=== PATIENT | male | born 1995 | race Caucasian/White ===

== ENCOUNTER 2018-10-15 12:06 | Emergency (ER) | payer BC ==
[2018-10-15] MEDS ORDERED: LAMOT150PT PO (12:18)
[2018-10-15] MEDS ORDERED: FLUORESCEIN SOD 1 MG 1 EA STRP ONE (12:23)
[2018-10-15] MEDS ORDERED: PROPARACAINE 0.5% OP 15ML BTL ONE (12:23)
[2018-10-15 13:07] VITALS: BP 111/71
[2018-10-15] MEDS ORDERED: IBUPROFEN 600 MG TAB PO ONE (13:10)
[2018-10-15] MEDS ORDERED: ACETAMINOPHEN 325 MG TAB PO ONE (13:10)
--- NOTE | 2018-10-15 13:10 | ER Report ---
History and Physical Time Seen By MD: 12:10 Hx. of Stated Complaint: right eye pain HPI/ROS CHIEF COMPLAINT: Right eye pain and visual change HISTORY OF PRESENT ILLNESS: [22-year-old male awoke her well, noted on pain approximately 45 minutes before going to work, rubs his right, noted increased pain and floaters. He states that due to this pain, he felt lightheaded, ultimately leading to a syncopal event during which he struck his forehead on the counter leading to a brief episode of syncope. Patient states that he was able to get himself up, although continued to have lightheadedness, headache, ringing in his right ear, nausea and vomiting 2. His primary concern is his right arm pain and visual change. He has no recent change in activity. Pain is moderate and constant. No fever, chills, prolonged sun exposure, hx of hsv. REVIEW OF SYSTEMS: Constitutional: No fever, no chills. Eyes: above ENT: sore throat last wk, reported episode of thrush 1 d ago that resolved Cardiovascular: No chest pain, no palpitations. Respiratory: No cough, no shortness of breath. Gastrointestinal: above Genitourinary: no dysuria, no lesions, no hematuria Musculoskeletal: No back pain. Skin: No rashes, lesions, no known environmental exposure Neurological: above Remainder of the 14 system rev: Yes Allergies: Coded Allergies: No Known Allergies (Verified Allergy, Unknown, 10/15/18) Home Meds Reported Medications Lamotrigine (LAMICTAL) 150 Mg Tablet, 150 MG PO QDAY 10/15/18 Reviewed Nurses Notes: Yes Hx Substance Use Disorder: No Hx Alcohol Use: No Constitutional Vital Sign - Last 24 Hours 10/15/18 10/15/18 10/15/18 10/15/18 12:06 12:15 12:30 12:36 Temp 97.5 Pulse 52 69 55 Resp 14 B/P (MAP) 123/77 116/76 (89) Pulse Ox 93 94 92 O2 Delivery Room Air 10/15/18 10/15/18 10/15/18 13:06 13:07 13:12 Pulse 54 51 B/P (MAP) 111/71 (84) Pulse Ox 93 92 Physical Exam General Appearance: The patient is alert, has no immediate need for airway protection and no signs of toxicity. [ ] Eyes: PERRL, mild r conjunctival injection No foreign body. Fundus nl IOP: 13 OD SLE: diffuse uptake OS - unremarkable OD - diffuse punctate update on cornea. No definite cell/flare. + fluorescein uptake. No dendrites. ENT, Mouth: Mucous membranes are moist. No exudates Respiratory: There are no retractions, lungs are clear to auscultation. Cardiovascular: Regular rate and rhythm. Neurological: alert, oriented x 3, no gross deficits Skin: Warm and dry, no rashes. Musculoskeletal: Neck is supple non tender. No lymphadenopathy Extremities are nontender, nonswollen and have full range of motion. DIFFERENTIAL DIAGNOSIS: After history and physical exam differential diagnosis was considered for keratitis; infectious/environmental, foreign body, or other emergent cause of findings. Medical Decision Making ED Course/Re-evaluation ED Course Keratitis of unknown cause. Spoke with local optho. Will go directly to office. Decision to Disposition Date: Oct 16, 2018 Decision to Disposition Time: 18:53 Depart Departure Latest Vital Signs Vital Signs Date Time Temp Pulse Resp B/P (MAP) Pulse Ox O2 Delivery O2 Flow Rate FiO2 10/15/18 13:12 51 92 10/15/18 13:07 111/71 (84) 10/15/18 12:15 97.5 14 Room Air Impression: Primary Impression: Keratitis Condition: Condition Unchanged Disposition: HOME OR SELF-CARE Patient Instructions: Keratitis (ED) Additional Instructions: As we discussed, go directly to see Dr. Lennox Hobbs: [address], [place] [address]. His office closes at 4:30. If for some reason you cannot make it in time, please call: [phone] and coordinate with him. Please return for uncontrolled pain, worsening symptoms, or any concerns. LUIS MANUEL PRO MD Oct 15, 2018 13:10
[2018-10-15] MEDS ORDERED: ACET/HYDROC 5/325MG TH ER ONLY 2 TAB/BOTTLE PO ONE (13:30)
== END 2018-10-15 13:38 | disposition home or self-care (01) ==
LOC: ER 12:16
DX: H16.9 Unspecified keratitis (principal)
CPT/HCPCS: 99283